=== PATIENT | male | born 1995 | race Caucasian/White ===

== ENCOUNTER 2018-03-12 07:24 | Emergency (ER) | payer SELFPAY ==
[2018-03-12 07:33] VITALS: BMI 28.8
[2018-03-12 07:41] VITALS: BP 130/86; TEMP 98.2; O2SAT 98
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
[2018-03-12 08:34] VITALS: PULSE 86; RESP 17
== END 2018-03-12 08:25 | disposition home or self-care (01) ==
LOC: ED 07:24
DX: S80.11XA Contusion of right lower leg, initial encounter (principal); V03.90XA Pedestrian on foot injured in collision with car, pick-up truck or van, unspecified whether traffic or nontraffic accident, initial encounter; Y92.410 Unspecified street and highway as the place of occurrence of the external cause
CPT/HCPCS: 96372; 99284; J1885